=== PATIENT | male | born 1940 | race Caucasian/White ===

== ENCOUNTER → 2016-11-23 | Day surgery (SDC) | payer OTHER ==
[2016-11-09 11:23] VITALS: BMI 21.0
--- NOTE | 2016-11-09 11:52 | PAT Medication Instructions ---
Service Date Nov 09, 2016. Current Home Medication List Acetaminophen (Tylenol), 325 MG PO PRN Alfuzosin Hcl (Uroxatral), 10 MG PO QAM Aspirin (Aspirin Ec), 81 MG PO QAM Atorvastatin (Lipitor), 20 MG PO HS Cinnamon (Cinnamon), 1,000 MG PO QAM Cyanocobalamin (Vitamin B12 500MCG), 2,500 MCG PO QAM Dutasteride (Avodart), 0.5 MG PO QAM Garlic (Garlic), 1,000 MG PO QAM Glipizide (Glipizide Er), 1 TAB PO BID Metformin Hcl (Glucophage), 1,000 MG PO BID Ranitidine (Zantac), 150 MG PO PRN Warfarin Sod (Jantoven), 6 MG PO 6XWEEK [Zinc], 50 MG PO QAM Medication Instructions For Your Scheduled Surgery - Check with surgeon/travel registered nurse oncology for instructions: Warfarin Sod (Jantoven), 6 MG PO 6XWEEK Aspirin (Aspirin Ec), 81 MG PO QAM - Hold the following medications 2 weeks prior to surgery: Garlic (Garlic), 1,000 MG PO QAM Cinnamon (Cinnamon), 1,000 MG PO QAM - Hold the following medications 48 hours prior to surgery: Metformin Hcl (Glucophage), 1,000 MG PO BID - Hold the following medications the morning of surgery: [Zinc], 50 MG PO QAM Ranitidine (Zantac), 150 MG PO PRN Glipizide (Glipizide Er), 1 TAB PO BID Dutasteride (Avodart), 0.5 MG PO QAM Cyanocobalamin (Vitamin B12 500MCG), 2,500 MCG PO QAM Alfuzosin Hcl (Uroxatral), 10 MG PO QAM - Take the following medications the morning of surgery with a sip of water: Acetaminophen (Tylenol), 325 MG PO PRN - Take the following medications as scheduled the night before surgery: Ranitidine (Zantac), 150 MG PO PRN Glipizide (Glipizide Er), 1 TAB PO BID Atorvastatin (Lipitor), 20 MG PO HS Acetaminophen (Tylenol), 325 MG PO PRN If you have any questions please call us at [phone] (Unique Kan PA-C) or [phone] or [phone]
[2016-11-09 12:27] LABS: BASO % 0.3 %; BASO ABS # 0.04 K/uL (0-0.2); COMPLETE YES; EOS % 1.1 %; HEMATOCRIT 44.1 % (42-52); IG% 0.3 %; LYMPH % 13.1 %; MEAN CELL VOLUME 95.5 fL (80-100); MEAN CORPUSCULAR HEMOGLOBIN 33.1 pg (25-34); MEAN CORPUSCULAR HGB CONC 34.7 g/dl (32-36); MEAN PLATELET VOLUME 9.9 fL (7.4-10.4); MONO % 6.9 %; NEUT % 78.3 %; PLATELET COUNT 246 K/uL (130-400); RED BLOOD COUNT 4.62 M/uL (4.7-6.1); WHITE BLOOD COUNT 12.18 K/uL (4.8-10.8)
--- NOTE | 2016-11-09 12:33 | DIAGNOSTIC IMAGING REPORT ---
CHEST 2 VIEWS ROUTINE CLINICAL HISTORY: pat preoperative evaluation COMPARISON STUDY: No previous studies for comparison. FINDINGS: Mild emphysematous change. Slight basilar fibrotic changes most likely chronic. No acute infiltrate. IMPRESSION: Mild emphysematous change. Chronic change. No acute process. Electronically signed by: Shaheed Pendleton M.D. 11/09/2016 12:32 PM Dictated Date/Time: 11/09/2016 12:31 PM
[2016-11-09 12:36] LABS: URINE APPEARANCE CLOUDY (CLEAR); URINE BILIRUBIN NEG (NEG); URINE COLOR YELLOW; URINE NITRITE NEG (NEG); URINE SPECIFIC GRAVITY 1.021 (1.000-1.030); UROBILINOGEN NEG (NEG)
[2016-11-09 12:42] LABS: MANUAL MICROSCOPIC REQUIRED? NO; REVIEW REQ? NO
[2016-11-09 13:09] LABS: BUN/CREATININE RATIO 21.1 (10-20); CALCIUM 9.6 mg/dl (8.5-10.1); CREATININE 1.1 mg/dl (0.60-1.40); POTASSIUM 3.8 mmol/L (3.5-5.1)
[~2016-11-23] VITALS: Ht 175.3 cm; Wt 65.9 kg
[~2016-11-23] MED LIST: ACET-1311 PO; ALFU10TA2 PO; ASPCH81X PO; ASPI81TA28 PO; ATOR-22 PO; ATROPINE SULFATE 0.1 MG/ML 5ML SYR IV PRN; CINN1CAP2 PO; CIPR-255 PO; CIPROFLOXACIN / D5W 400 MG IV SCH; CYAN500T PO; CYAN500T13 PO; DOCU-94 PO; DUTA0.5C PO; EpHEDrine SULFATE INJ 50 MG/ML AMP IV PRN; FENTANYL CITRATE INJ 50 MCG/1 ML 2 ML VIAL ONE; GARL10007 PO; GLIP-199 PO; HYDR-5688 PO; HYDROmorphone INJ 2 MG/ML SYR/VIAL IV PRN; LACTATED RINGER'S 1000ML 1,000 ML IV SCH; LIDOCAINE HCL 2% 2 ML VIAL (20MG/ML) ONE; METF-384 PO; MIDAZOLAM HCL 1 MG/ML 2ML VIAL ONE; ONDANSETRON INJ 2 MG/ML 2 ML VIAL IV PRN; OXYC-57 PO; PHEN-775 PO; PHENYLEPHRINE 100MCG/ML 5ML SYR IV PRN; PROPOFOL IV EMULSION 10 MG/ML 20 ML VIAL IV ONE; WARF6TAB5 PO; ZINC PO; ZNTT/150 PO
--- NOTE | 2016-11-23 07:09 | History & Physical Bridge Note ---
H&P Re-Evaluation Bridge Note: I have examined the patient, reviewed the History & Physical and in the interval since the performance of the History & Physical I have noted the following changes of clinical significance: No changes noted
[2016-11-23 07:24] VITALS: BP 186/87; PULSE 104; TEMP 37; O2SAT 99; Ht 175.3 cm; Wt 65.9 kg
--- NOTE | 2016-11-23 07:35 | Discharge Instructions ---
Discharge Instructions Date of Service Nov 23, 2016. Admission Reason for Admission: Benign Prostatic Hypertrophy, Uti Discharge Discharge Diagnosis / Problem: Case cancelled as patient took his anticoagulants Discharge Goals Goal(s): Specific goals Activity Recommendations Activity Limitations: resume your previous activity Catheter to gravity drainage as instructed Blood in and around catheter is expected, not a problem as long as it is draining . Discharge Diet Recommended Diet: Regular Diet (good fluid intake) Pending Studies Studies pending at discharge: no Medical Emergencies . Who to Call and When: Medical Emergencies: If at any time you feel your situation is an emergency, please call 911 immediately. . Non-Emergent Contact Non-Emergency issues call your: Primary Care Provider . . "Provider Documentation" section prepared by Hugh Ortiz. VTE Core Measure Inpt VTE Proph given/why not?: SCD's
[2016-11-23 07:38] LABS: INR 2.1 (0.9-1.1); PARTIAL THROMBOPLASTIN RATIO 1.2; PROTHROMBIN TIME (PATIENT) 23.7 SECONDS (9.0-12.0)
--- NOTE | 2016-11-23 10:17 | Anesthesiology Progress Note ---
Anesthesia Post Op Note Date & Time Nov 23, 2016 at 10:18 Vital Signs Pain Intensity: 0 Vital Signs Past 12 Hours Date Time Temp Pulse Resp B/P Pulse Ox O2 Delivery O2 Flow Rate FiO2 11/23/16 07:24 37.0 104 20 186/87 99 Room Air Notes Mental Status: alert / awake / arousable, participated in evaluation Pt Amnestic to Procedure: Yes Nausea / Vomiting: adequately controlled Pain: adequately controlled Airway Patency, RR, SpO2: stable & adequate BP & HR: stable & adequate Hydration State: stable & adequate Anesthetic Complications: no major complications apparent
== END | disposition home or self-care (01) ==
LOC: C.ACU 06:46
PROVIDERS: ATTEND Urology
DX: N40.1 Benign prostatic hyperplasia with lower urinary tract symptoms (principal); Z53.09 Procedure and treatment not carried out because of other contraindication; N13.8 Other obstructive and reflux uropathy; R31.0 Gross hematuria; N39.0 Urinary tract infection, site not specified; E11.9 Type 2 diabetes mellitus without complications

== ENCOUNTER 2016-12-07 10:37 | Day surgery (SDC) | payer OTHER ==
[2016-11-24 16:22] VITALS: BMI 21.0
[~2016-12-07] VITALS: Ht 175.3 cm; Wt 65.9 kg
[~2016-12-07 10:37] MED LIST changes: -ASPCH81X PO; -CINN1CAP2 PO; -CIPR-255 PO; -CYAN500T PO; -DOCU-94 PO; +FENTANYL CITRATE INJ 50 MCG/1 ML 2 ML VIAL IV PRN; -FENTANYL CITRATE INJ 50 MCG/1 ML 2 ML VIAL ONE; -GARL10007 PO; -HYDR-5688 PO; +HYDROmorphone INJ 1 MG/ML SYR IV PRN; -HYDROmorphone INJ 2 MG/ML SYR/VIAL IV PRN; +LABETALOL HCL IV 5 MG/ML 20ML IV PRN; -LIDOCAINE HCL 2% 2 ML VIAL (20MG/ML) ONE; +MEPERIDINE HCL 25 MG/ML CARP IV PRN; -MIDAZOLAM HCL 1 MG/ML 2ML VIAL ONE; -OXYC-57 PO; -PHEN-775 PO; -PHENYLEPHRINE 100MCG/ML 5ML SYR IV PRN; -PROPOFOL IV EMULSION 10 MG/ML 20 ML VIAL IV ONE; -ZINC PO; -ZNTT/150 PO
[2016-12-07] MEDS ORDERED: CINN1CAP2 PO (11:03)
[2016-12-07 11:04] VITALS: BP 140/89; PULSE 93; TEMP 36.5; O2SAT 96; Ht 175.3 cm; Wt 65.9 kg
[2016-12-07 11:28] LABS: INR 1.1 (0.9-1.1); PROTHROMBIN TIME (PATIENT) 11.4 SECONDS (9.0-12.0)
[2016-12-07] MEDS ORDERED: FENTANYL CITRATE INJ 50 MCG/1 ML 2 ML VIAL ONE (11:40)
[2016-12-07] MEDS ORDERED: GENTAMICIN SULFATE 40 MG/ML 2 ML VIAL ONE (12:28)
[2016-12-07] MEDS ORDERED: PROPOFOL IV EMULSION 10 MG/ML 20 ML VIAL IV ONE (12:51)
[2016-12-07] MEDS ORDERED: LIDOCAINE HCL 2% 2 ML VIAL (20MG/ML) ONE (12:51)
[2016-12-07] MEDS ORDERED: DEXAMETHASONE SOD INJ 4 MG/ML VIAL ONE (12:51)
[2016-12-07] MEDS ORDERED: ONDANSETRON INJ 2 MG/ML 2 ML VIAL ONE (12:51)
--- NOTE | 2016-12-07 12:51 | [facility] Post Operative Brief Note ---
Immediate Operative Summary Operative Date Dec 07, 2016. Pre-Operative Diagnosis Benign Prostatic Hypertrophy, urinary retention Post-Operative Diagnosis Active Urinary Infection Procedure(s) Performed Cystoscopy under anesthesia Surgeon Dr. Hugh Ortiz Direct Care Worker Surgeon(s) NA Estimated Blood Loss 0 Findings Grossly opaque, thick, purulent urine c/w ongoing severe infection - case cancelled, UC&S sent Specimens Micro 1. Urine for Culture and Sensitivity Drains 16 fr moore 10 cc H2O Anesthesia GALMA Complication(s) None Disposition Recovery Room / PACU
--- NOTE | 2016-12-07 12:59 | Discharge Instructions ---
Discharge Instructions Date of Service Dec 07, 2016. Admission Reason for Admission: Benign Prostatic Hypertrophy, Uti Discharge Discharge Diagnosis / Problem: Active UTI Discharge Goals Goal(s): Diagnostic testing Activity Recommendations Activity Limitations: resume your previous activity Lifting Limitations: none Exercise/Sports Limitations: none Shower/Bathe: no limitations Driving or Machine Use: resume 1 day after discharge . Instructions / Follow-Up Instructions / Follow-Up Will be rescheduled, office with contact with information Discharge Diet Recommended Diet: Regular Diet (good fluid intake) Procedures Procedures Performed: Cystoscopy, urine culture under anesthesia Pending Studies Studies pending at discharge: yes List of pending studies: UC&S results Medical Emergencies . Who to Call and When: Medical Emergencies: If at any time you feel your situation is an emergency, please call 911 immediately. . Non-Emergent Contact Non-Emergency issues call your: Urologist Call Non-Emergent contact if: you have a fever, temperature is above 101, your pain is not controlled, your pain is worsening, your pain is unusual for you, your pain is concerning you, you have any medication questions . . "Provider Documentation" section prepared by Hugh Ortiz. VTE Core Measure Inpt VTE Proph given/why not?: SCD's
--- NOTE | 2016-12-07 13:25 | Anesthesiology Progress Note ---
Anesthesia Post Op Note Date & Time Dec 07, 2016 at 13:24 Vital Signs Pain Intensity: 0 Vital Signs Past 12 Hours Date Time Temp Pulse Resp B/P Pulse Ox O2 Delivery O2 Flow Rate FiO2 12/07/16 13:21 36.3 12/07/16 13:17 81 23 12/07/16 13:17 79 23 93 12/07/16 13:15 126/78 12/07/16 13:12 73 20 12/07/16 13:12 72 20 99 12/07/16 13:10 128/81 12/07/16 13:07 75 19 12/07/16 13:07 75 19 99 12/07/16 13:06 81 15 96 12/07/16 13:06 79 15 12/07/16 13:05 124/80 12/07/16 13:01 79 26 12/07/16 13:01 80 26 100 12/07/16 13:00 78 16 12/07/16 13:00 81 16 120/81 100 12/07/16 12:55 74 17 123/82 100 12/07/16 12:55 73 17 12/07/16 12:50 70 14 12/07/16 12:50 70 14 117/80 100 12/07/16 12:45 76 22 124/83 12/07/16 12:45 77 22 128/85 100 12/07/16 12:41 36.6 79 18 92/85 98 Mask 10 12/07/16 12:41 92/85 12/07/16 12:40 80 21 100 12/07/16 12:40 78 21 12/07/16 11:04 36.5 93 18 140/89 96 Room Air Notes Mental Status: alert / awake / arousable, participated in evaluation Pt Amnestic to Procedure: Yes Nausea / Vomiting: adequately controlled Pain: adequately controlled Airway Patency, RR, SpO2: stable & adequate BP & HR: stable & adequate Hydration State: stable & adequate Anesthetic Complications: no major complications apparent
[2016-12-07 13:30] VITALS: BP 168/80; PULSE 73; TEMP 37; O2SAT 99
--- NOTE | 2016-12-07 14:37 | OPERATIVE REPORT ---
DATE OF OPERATION: 12/07/2016 PREOPERATIVE DIAGNOSIS: Benign prostatic hypertrophy with history of recurrent urinary tract infection. POSTOPERATIVE DIAGNOSIS: Active urinary tract infection. PROCEDURES: Cystoscopy, sterile urine culture under anesthesia. SURGEON: Dr. Hugh Ortiz. HEAT SEAL OPERATOR: None. ANESTHESIA: General anesthesia with laryngeal mask. COMPLICATIONS: Active urinary tract infection, case canceled. DRAINS LEFT IN PLACE: Include a 16-Chadian silicone catheter to gravity drainage. ESTIMATED BLOOD LOSS: None. SPECIMENS SENT TO PATHOLOGY: Urine for culture and sensitivity. FINDINGS: Obstructive prostate gland, trabeculated and inflamed bladder, completely opaque and purulent urine, thick consistent with active urinary tract infection. Case canceled as noted. BRIEF HISTORY: Mr. Giordano is a 76-year-old male with history of BPH, bothersome voiding and recurrent urinary tract infection. He was scheduled 2 weeks ago for a GreenLight vaporization of the prostate but canceled due to failure to stop his anticoagulation per preoperative instructions. He is here today for a rescheduled surgery. Please see H\T\P for further details. Intravenous ciprofloxacin was provided for antibiotic coverage and SCDs for DVT prophylaxis. Informed consent reviewed in the chart preoperatively with the patient today. PROCEDURE: The patient was properly identified and brought to the operative suite after identification of appropriate consent on the chart, general anesthesia with laryngeal mask was initiated. The patient was prepped and draped in standard fashion for this procedure. night time babysitter-out procedure was followed. A 22-Chadian rigid cystoscope was passed into the bladder under direct visualization. A normal urethra was appreciated with an obstructive prostate with lateral lobe hypertrophy. However, on entering the bladder completely opaque urine with zero visualization within the bladder and cloudy debris was appreciated. Bladder was drained and urine was collected. This was noted to be ranging from at best from completely opaque and cloudy to at worst for the second half of the bladder urine consistent with thick purulence, cream in consistency consistent with a severe ongoing active urinary tract infection. A full sample cup was filled and sent for culture and analysis. Bladder was generously irrigated with the urine eventually clearing and inflamed bladder mucosa present throughout. Severe trabeculation and diverticular formation was appreciated consistent with the patient's office cystoscopy results. Seeing the patient's intraoperative findings, stable consistent with a high burden acute active urinary tract infection for which the patient had not been pretreated for which sensitivities were unclear case was canceled. Bladder was partially distended and a recent cystoscope was removed. A 16-Chadian silicone catheter was placed with 10 mL of sterile water in the balloon to allow for complete bladder emptying and hopefully treatment of the patient's urinary tract infections sufficiently to allow for a GreenLight vaporization of the prostate to proceed as planned. Anesthesia was reversed. The patient was transferred to recovery room in stable condition. FOLLOW-UP CARE: The patient will be discharged home with Castellon catheter in place. Care was discussed with the patient and the patient's family. We will await his final urine cultures prior to initiating antibiotic therapy. Worrisome signs and symptoms reviewed with the patient's family. We will attempt to reschedule in the near future and ensure that he is covered through the case with culture specific antibiotics. He will remain on maximum medical therapy in the meanwhile. I attest to the content of the Intraoperative Record and any orders documented therein. Any exceptio ns are noted below.
[2016-12-09] MEDS ORDERED: ASPCH81X PO (10:06)
[2016-12-09] MEDS ORDERED: CYAN500T PO (10:23)
[2016-12-09] MEDS ORDERED: ATOR-22 PO (10:23)
[2016-12-09] MEDS ORDERED: ALFU10TA2 PO (10:23)
[2016-12-09] MEDS ORDERED: GLIP-199 PO (10:23)
[2016-12-09] MEDS ORDERED: DUTA0.5C PO (10:23)
[2016-12-09] MEDS ORDERED: METF-384 PO (10:23)
[2016-12-17] MEDS ORDERED: HYDR-5688 PO (13:40)
[2016-12-17] MEDS ORDERED: DOCU-94 PO (13:40)
== END 2016-12-07 14:45 | disposition home or self-care (01) ==
LOC: C.ACU 10:37
PROVIDERS: ATTEND Urology
DX: N40.1 Benign prostatic hyperplasia with lower urinary tract symptoms (principal); N13.8 Other obstructive and reflux uropathy; N39.0 Urinary tract infection, site not specified; I48.91 Unspecified atrial fibrillation; E11.9 Type 2 diabetes mellitus without complications; Z85.828 Personal history of other malignant neoplasm of skin; Z87.39 Personal history of other diseases of the musculoskeletal system and connective tissue; Z98.890 Other specified postprocedural states; Z83.3 Family history of diabetes mellitus; Z80.0 Family history of malignant neoplasm of digestive organs; Z79.82 Long term (current) use of aspirin; Z79.01 Long term (current) use of anticoagulants

== ENCOUNTER → 2016-12-17 | Day surgery (SDC) | payer OTHER ==
[2016-12-09 10:12] VITALS: BMI 21.0
[~2016-12-17] VITALS: Ht 175.3 cm; Wt 65.9 kg
[~2016-12-17] MED LIST changes: +ASPCH81X PO; -ASPI81TA28 PO; -ATROPINE SULFATE 0.1 MG/ML 5ML SYR IV PRN; +BELLADONNA/OPIUM SUPP 60 MG SUPP PR ONE; -CIPROFLOXACIN / D5W 400 MG IV SCH; +CIPROFLOXACIN 400MG / D5W IV SCH; +CYAN500T PO; -CYAN500T13 PO; +DEXAMETHASONE SOD INJ 4 MG/ML VIAL ONE; +DOCU-94 PO; -EpHEDrine SULFATE INJ 50 MG/ML AMP IV PRN; -FENTANYL CITRATE INJ 50 MCG/1 ML 2 ML VIAL IV PRN; +FENTANYL CITRATE INJ 50 MCG/1 ML 2 ML VIAL ONE; +GENTAMICIN INJ 120 MG in DEXTROSE 5% 100ML 100 ML IV SCH; +HYDR-5688 PO; +HYDROCODONE/ACETAMOPHEN 5/325MG TAB PO PRN; -HYDROmorphone INJ 1 MG/ML SYR IV PRN; -LABETALOL HCL IV 5 MG/ML 20ML IV PRN; +LACTATED RINGER'S 1000ML 1,000 ML IV PRN; +LIDOCAINE HCL 2% 2 ML VIAL (20MG/ML) ONE; -MEPERIDINE HCL 25 MG/ML CARP IV PRN; +MIDAZOLAM HCL 1 MG/ML 2ML VIAL ONE; +ONDANSETRON INJ 2 MG/ML 2 ML VIAL ONE; +PHENYLEPHRINE 100MCG/ML 5ML SYR ONE; +PROPOFOL IV EMULSION 10 MG/ML 20 ML VIAL IV ONE
[2016-12-17 11:28] LABS: INR 1.1 (0.9-1.1); PROTHROMBIN TIME (PATIENT) 11.4 SECONDS (9.0-12.0)
[2016-12-17 11:47] VITALS: BP 139/88; PULSE 95; TEMP 36.8; O2SAT 99; Ht 175.3 cm; Wt 65.9 kg
--- NOTE | 2016-12-17 12:08 | History and Physical ---
History & Physical Date Dec 17, 2016. Chief Complaint BPH, UTI History of Present Illness The patient is a 76 year old male with complaints of BPH for GLTURP/ R/S due to UTI now with moore on nitrofurantoin. Urine clear. Past Medical/Surgical History PSHx - skin biopsy, cardiac ablation, hernia repair Additional History Hepatic Disease: No Endocrine Disorder: Yes Kidney Disease: Yes Heart Disease: Yes Infectious Diseases: No Other: Afib, basal cell CA, gout, BPH, DM, UTI Allergies Coded Allergies: No Known Allergies (Unverified , 12/09/16) Home Medications Scheduled Acetaminophen (Tylenol), 325 MG PO Q4H Alfuzosin Hcl (Uroxatral), 10 MG PO QAM Aspirin (Aspirin Chewable), 81 MG PO HOLD ONE WEEK Atorvastatin (Lipitor), 20 MG PO HS Cyanocobalamin (Vitamin B-12), 2,500 MCG PO QAM Dutasteride (Avodart), 0.5 MG PO QAM Glipizide (Glipizide Er), 1 TAB PO BID Metformin Hcl (Glucophage), 1,000 MG PO BID Warfarin Sod (Jantoven), 6 MG PO UD Physical Examination Skin: warm/dry Eyes: normal inspection ENT: normal ENT inspection Head: normocephalic Neck: supple Respiratory/Chest: no respiratory distress Cardiovascular: no edema Abdomen / GI: normal bowel sounds Genitourinary - Male: normal male genitalia (moore in place) Neurologic/Psych: alert, oriented x 3 Diagnosis BPH and UTI history. Plan of Treatment GLTURP IV Cipro and Gent SCDs.
[2016-12-17] MEDS: FENTANYL CITRATE INJ 50 MCG/1 ML 2 ML VIAL IV PRN ×2 (13:35→13:40)
--- NOTE | 2016-12-17 13:37 | [facility] Post Operative Brief Note ---
Immediate Operative Summary Operative Date Dec 17, 2016. Pre-Operative Diagnosis Benign prostate hypertrophy and history of urinary tract infection Post-Operative Diagnosis Same as pre-operative Procedure(s) Performed Greenlight Transurethral Resection of Prostate Surgeon Dr. Hugh Ortiz Route Aide Surgeon(s) None Estimated Blood Loss 10 ml Findings Open fossa, 141 J of energy used. Specimens None Drains 20 fr silicone, 10 cc H2O Anesthesia GALMA Complication(s) None Disposition Recovery Room / PACU
--- NOTE | 2016-12-17 13:44 | Discharge Instructions ---
Discharge Instructions Date of Service Dec 17, 2016. Admission Reason for Admission: Benign Prostatic Hypertrophy, Uti Discharge Discharge Diagnosis / Problem: Benign prostatic hypertrophy Discharge Goals Goal(s): Decrease discomfort, Improve disease control, Therapeutic intervention Activity Recommendations Activity Limitations: as noted below Lifting Limitations: no more than 25 pounds (x 2 weeks) Exercise/Sports Limitations: rest today, gradually increase as tolerated ( Light activitiy x 2 weeks- no riding lawn mowers x 2 weeks) May Resume Sexual Activity: after follow-up appointment Shower/Bathe: no limitations Driving or Machine Use: resume 3 days after discharge (Do not drive while taking narcotics) . Instructions / Follow-Up Instructions / Follow-Up 1. Finish all nitrofurantoin as directed. 2. You may resume taking your Aspirin and Coumadin in 5 days. 3. Follow-up with Dr. Ortiz as scheduled. Please call our office at [phone] if you need to reschedule for any reason. Discharge Diet Recommended Diet: Regular Diet Procedures Procedures Performed: Greenlight Transurethral Resection of Prostate Pending Studies Studies pending at discharge: no Medical Emergencies . Who to Call and When: Medical Emergencies: If at any time you feel your situation is an emergency, please call 911 immediately. . Non-Emergent Contact Non-Emergency issues call your: Urologist Call Non-Emergent contact if: temperature is above 101.5, your pain is not controlled, your pain is worsening, your pain is unusual for you, your pain is concerning you, you have any medication questions . . "Provider Documentation" section prepared by Jessica Tillman. . VTE Core Measure Inpt VTE Proph given/why not?: SCD's [place] Drug Monitoring Program Search Results: patient reviewed within database, no issues identified
--- NOTE | 2016-12-17 13:45 | Anesthesiology Progress Note ---
Anesthesia Post Op Note Date & Time Dec 17, 2016 at 13:44 Vital Signs Pain Intensity: 2 Vital Signs Past 12 Hours Date Time Temp Pulse Resp B/P Pulse Ox O2 Delivery O2 Flow Rate FiO2 12/17/16 13:30 72 15 141/71 99 Mask 10 12/17/16 13:24 36.4 82 17 147/94 100 Mask 10 12/17/16 11:47 36.8 95 16 139/88 99 Notes Mental Status: alert / awake / arousable, participated in evaluation Pt Amnestic to Procedure: Yes Nausea / Vomiting: adequately controlled Pain: adequately controlled Airway Patency, RR, SpO2: stable & adequate BP & HR: stable & adequate Hydration State: stable & adequate Anesthetic Complications: no major complications apparent Pt doing well.
--- NOTE | 2016-12-17 14:07 | OPERATIVE REPORT ---
DATE OF OPERATION: 12/17/2016 PREOPERATIVE DIAGNOSES: Obstructive benign prostatic hypertrophy and a history of recurrent urinary tract infection. POSTOPERATIVE DIAGNOSES: Same. PROCEDURE: GreenLight vaporization of the prostate gland. SURGEON: Dr. Hugh Ortiz. PRINTING TABLE WORKER: None. ANESTHESIA: General anesthesia with laryngeal mask. COMPLICATIONS: None. ESTIMATED BLOOD LOSS: Minimal. SPECIMENS SENT TO PATHOLOGY: None. DRAINS LEFT IN PLACE: Include a 20-Swazi silicone catheter to gravity drainage with 10 mL of sterile water in the balloon. FINDINGS: Open prostatic fossa after completion of case, 141,000 joules of energy used. BRIEF HISTORY: Mr. Giordano is a 76-year-old male who I have seen previously for history of BPH, bothersome voiding symptoms and recurrent urinary tract infection. Please see H\T\P for further details. Unfortunately, his first planned GreenLight vaporization of the prostate gland was canceled due to the fact that he remained on his anticoagulation. Last week, he was seen and his urine was noted to be completely opaque and milky. Urine culture at this time was negative, but he was placed on suppressive nitrofurantoin and Castellon catheter was left in place. He is here today for his third attempted GreenLight vaporization of the prostate gland and thankfully, we were successful. SCDs were used for DVT prophylaxis and intravenous ciprofloxacin and gentamicin used for antibiotic coverage. Urine has clear in the Castellon catheter prior to admission per the patient. DESCRIPTION OF PROCEDURE: The patient was properly identified and brought to the operative suite. After identification of appropriate consent on the chart, general anesthesia with laryngeal mask was initiated. The patient was prepped and draped in standard fashion for this procedure. multimedia services manager-out procedure was followed. GreenLight laser resectoscope was passed into the bladder under direct visualization and an obstructive prostate gland as previously noted was appreciated. Bladder diverticulum was present within the dome of the bladder and some mildly inflamed mucosa present throughout. Grade 2-3 trabeculation was noted with some lateral bladder floor relaxation. Ureteral orifices were noted in the normal anatomic location and noted to be well removed from the bladder neck. No tumors or stones were present within the bladder. Bladder was generously irrigated. Using the scope and using a side fire GreenLight laser scope, circumferential vaporization of the prostate gland was performed. The patient was noted to have quite indurated and inflamed prostate, likely the cause of some of his difficulties with his urination. Relaxing incisions at the 5 and 7 o'clock position were made at the bladder neck using the laser to avoid a bladder neck contracture in the future. Ureteral orifices were well removed from the level of dissection and noted to be free of injury after completion of the case. After 141,000 joules of energy were used, the patient was noted to be well unobstructed at the level of the prostate. Atypical sparing and no laser vaporization beyond the level of the verumontanum had been carried out. Excellent hemostasis was appreciated within the prostatic fossa. Bladder was partially distended and resectoscope was removed. A 20-Swazi silicone Castellon catheter was placed over a catheter guide with return of clear irrigant. Ten mL of sterile water were placed in the balloon and catheter was placed to gravity drainage. Belladonna suppository was provided for additional postoperative analgesia. Anesthesia was reversed. The patient was transferred to recovery room in stable condition. FOLLOWUP CARE: The patient will be discharged home with catheter in place. Outpatient trial of void is planned. He is to complete his nitrofurantoin as previously prescribed. He was provided with Pyridium and Percocet for postoperative analgesia. He is instructed to contact our service should he note any fevers, chills, nausea, vomiting or other significant difficulties in the postoperative period. I attest to the content of the Intraoperative Record and any orders documented therein. Any exceptio ns are noted below.
[2016-12-17 14:10] VITALS: BP 131/82; PULSE 81; TEMP 36.8; O2SAT 96
[2016-12-17 14:40] VITALS: BP 147/91; PULSE 84; O2SAT 99
[2016-12-17 15:10] VITALS: BP 134/76; PULSE 82; TEMP 37.2; O2SAT 97
== END | disposition home or self-care (01) ==
LOC: C.ACU 10:50
PROVIDERS: ATTEND Urology
DX: N40.1 Benign prostatic hyperplasia with lower urinary tract symptoms (principal); Z87.440 Personal history of urinary (tract) infections; E11.9 Type 2 diabetes mellitus without complications; Z98.890 Other specified postprocedural states; Z85.828 Personal history of other malignant neoplasm of skin; Z79.899 Other long term (current) drug therapy; Z68.21 Body mass index [BMI] 21.0-21.9, adult; I48.91 Unspecified atrial fibrillation

== ENCOUNTER → 2016-12-30 | Outpatient (CLI) | payer OTHER ==
[~2016-12-30] MED LIST changes: -ASPCH81X PO; -BELLADONNA/OPIUM SUPP 60 MG SUPP PR ONE; -CIPROFLOXACIN 400MG / D5W IV SCH; -DEXAMETHASONE SOD INJ 4 MG/ML VIAL ONE; -FENTANYL CITRATE INJ 50 MCG/1 ML 2 ML VIAL ONE; -GENTAMICIN INJ 120 MG in DEXTROSE 5% 100ML 100 ML IV SCH; -HYDROCODONE/ACETAMOPHEN 5/325MG TAB PO PRN; -LACTATED RINGER'S 1000ML 1,000 ML IV PRN; -LACTATED RINGER'S 1000ML 1,000 ML IV SCH; -LIDOCAINE HCL 2% 2 ML VIAL (20MG/ML) ONE; -MIDAZOLAM HCL 1 MG/ML 2ML VIAL ONE; -ONDANSETRON INJ 2 MG/ML 2 ML VIAL IV PRN; -ONDANSETRON INJ 2 MG/ML 2 ML VIAL ONE; -PHENYLEPHRINE 100MCG/ML 5ML SYR ONE; -PROPOFOL IV EMULSION 10 MG/ML 20 ML VIAL IV ONE; -WARF6TAB5 PO
== END | disposition home or self-care (01) ==
LOC: C.LABSPEC 17:00
PROVIDERS: ATTEND Urology
DX: N40.1 Benign prostatic hyperplasia with lower urinary tract symptoms (principal); N39.0 Urinary tract infection, site not specified; R31.0 Gross hematuria